=== PATIENT | male | born 1950 | race American Indian/Alaskan Native ===

== ENCOUNTER 2017-07-26 12:17 | Emergency (ER) | payer MEDICARE ==
--- NOTE | 2017-07-26 13:17 | Cat Scan Report ---
FINAL REPORT EXAM: CT HEAD/BRAIN WO CON HISTORY: dizziness,confusion/S/P fall and LOC TECHNIQUE: CT examination of the head without IV contrast PRIORS: None. FINDINGS: Nonspecific smoothly marginated large hyperdense right skullbase mass with scattered punctate calcifications is centered in the right CP angle region. Maximum AP dimension is 5 cm and transverse dimension is 3 cm. There is mass effect on the adjacent posterior fossa structures with slight leftward shift of the 4th ventricle. Leftward shift also noted of the mid brain and brainstem. There mass effect on the right cerebellum. Findings are highly suspicious for neoplasm. This may be an acoustic neuroma or meningioma. Differential includes epidermoid. No acute air-fluid level visualized in the included air-filled sinuses. Bone windows demonstrate no acute fracture. The brain is without evidence of hemorrhage or acute infarct. The ventricles and sulci are age-appropriate. IMPRESSION: ALERT: ABNORMAL FINDING REQUIRING FOLLOWUP. Large solid-appearing mass centered in right CP angle region highly suspicious for neoplasm with mass effect on adjacent brain. Differential includes acoustic neuroma, meningioma, or epidermoid. Follow-up brain MRI, with IV contrast if possible, may help further characterize
[2017-07-26 13:25] LABS: Basophils % (Auto) 0.2 % (0.0-1.8); Hematocrit 42.4 % (35.5-45.6); Hemoglobin 13.4 gm/dl (11.8-15.2); Lymphocytes # (Auto) 0.9 K/mm3 (1.2-5.4); Lymphocytes % (Auto) 11.9 % (13.4-35.0); Mean Corpuscular HGB Conc 32 % (32-34); Mean Corpuscular Volume 79 fl (84-94); Monocytes # (Auto) 0.5 K/mm3 (0.0-0.8); Monocytes % (Auto) 5.7 % (0.0-7.3); Platelet Count 150 K/mm3 (140-440); Red Blood Count 5.39 M/mm3 (3.65-5.03); Red Cell Distribution Width 13.8 % (13.2-15.2)
[2017-07-26 13:26] LABS: Mean Corpuscular Hemoglobin 25 pg (28-32)
[2017-07-26 13:30] LABS: Alanine Aminotransferase 26 units/L (7-56); Albumin 4.8 g/dL (3.9-5); BUN/Creatinine Ratio 20; Blood Urea Nitrogen 20 mg/dL (9-20); Calcium 9.7 mg/dL (8.4-10.2); Hemolysis Index 2
[2017-07-26 18:03] LABS: Bilirubin,Urine NEG (Negative); Blood,Urine NEG (Negative); Color,Urine Yellow (Yellow); Mucus,Urine 3+ /HPF; Protein,Urine <15 mg/dL mg/dL (Negative); Urobilinogen,Urine < 2.0 mg/dL (<2.0); WBC,Urine < 1.0 /HPF (0.0-6.0)
[2017-07-26 18:05] LABS: Amphetamine Screen,Urine PRESUMPTIVE NEGATIVE; Benzodiazepines Screen,Urine PRESUMPTIVE NEGATIVE; Cannabinoid Screen,Urine PRESUMPTIVE NEGATIVE; Cocaine Screen,Urine PRESUMPTIVE NEGATIVE; Methadone Screen,Urine PRESUMPTIVE NEGATIVE; Opiate Screen,Urine PRESUMPTIVE NEGATIVE
--- NOTE | 2017-07-26 18:28 | XRay Report ---
FINAL REPORT EXAM: XR RIBS UNI W PA CHEST 3+V LT HISTORY: pain s/p fall TECHNIQUE: Left ribs three views in PRIORS: None. FINDINGS: There acute displaced fractures of the left posterior lateral 9th through 12th ribs. No focal pulmonary infiltrate identified no evidence for pneumothorax. No pleural fluid collection identified. Cardiac and mediastinal contours are unremarkable IMPRESSION: Acute left 9th through 12th rib fractures
[2017-07-26] MEDS ORDERED: DECADRON IV ONE (18:56)
[2017-07-26] MEDS ORDERED: MORPHINE IV ONE ×2 (19:17→20:00)
--- NOTE | 2017-07-26 19:20 | Emergency Department Report ---
HPI - General Chief Complaint: Syncope Time Seen by Provider: 07/26/17 16:31 - HPI HPI: Patient brought to the ED today after having syncopal episode at home. stated patient was in the bathroom and she heard a noise. When she went to check on the patient he was laid on the ground not responding to verbal and tactile stimuli. Patient however had a pulse, without any loss of bowel or urine. After 2 or 3 minutes patient came back to it. Complaining of left flank pain mild weakness in the left side and he was transported to ED. ED Past Medical Hx - Past Medical History Hx Hypertension: Yes Additional medical history: heart murmur, sickle cell trait - Surgical History Past Surgical History?: No - Social History Smoking Status: Never Smoker Substance Use Type: Alcohol - Medications Home Medications: Home Medications Medication Instructions Recorded Confirmed Last Taken Type Indapamide [Lozol] 2.5 mg PO QDAY 07/26/17 07/26/17 Unknown History Lisinopril [Zestril] 20 mg PO QDAY 07/26/17 07/26/17 07/24/17 History Meloxicam [Mobic] 15 mg PO QDAY PRN 07/26/17 07/26/17 Unknown History Terazosin [Hytrin] 5 mg PO QHS 07/26/17 07/26/17 07/25/17 History ED Review of Systems ROS: Stated complaint: CHEST PAIN Other details as noted in HPI Physical Exam - Physical Exam Vital Signs: Vital Signs 07/26/17 12:29 Temperature 98.5 F Pulse Rate 85 Respiratory 18 Rate Blood Pressure 159/92 O2 Sat by Pulse 96 Oximetry Physical Exam: - Physical Exam Physical Exam: - General Limitations: No Limitations General appearance: alert, in no apparent distress, obese - Head Head exam: Present: atraumatic, normocephalic - Eye Eye exam: Present: normal appearance - ENT ENT exam: Present: mucous membranes moist - Neck Neck exam: Present: normal inspection - Respiratory Respiratory exam: Present: normal lung sounds bilaterally. Left rib cage lower part tenderness Absent: respiratory distress - Cardiovascular Cardiovascular Exam: Present: normal rhythm, tachycardia. Absent: systolic murmur, diastolic murmur, rubs, gallop - GI/Abdominal GI/Abdominal exam: Present: soft, normal bowel sounds - Extremities Exam Extremities exam: Present: normal inspection - Back Exam Back exam: Present: normal inspection - Neurological Exam Neurological exam: Present: alert, oriented X3 - Psychiatric Psychiatric exam: normal affect and mood - Skin Skin exam: Present: warm, dry, intact, normal color. Absent: rash ED Course Vital Signs 07/26/17 12:29 Temperature 98.5 F Pulse Rate 85 Respiratory 18 Rate Blood Pressure 159/92 O2 Sat by Pulse 96 Oximetry ED Medical Decision Making - Lab Data Result diagrams: 07/26/17 12:44 07/26/17 12:44 Critical care attestation.: If time is entered above; I have spent that time in minutes in the direct care of this critically ill patient, excluding procedure time. ED Disposition Clinical Impression: Brain lesion Syncope Qualifiers: Syncope type: psychogenic syncope Qualified Code(s): F48.8 - Other specified nonpsychotic mental disorders Multiple rib fractures Qualifiers: Encounter type: initial encounter Fracture type: closed Laterality: left Qualified Code(s): S22.42XA - Multiple fractures of ribs, left side, initial encounter for closed fracture Disposition: DC-09 OP ADMIT IP TO THIS HOSP Is pt being admited?: No Does the pt Need Aspirin: No Condition: Stable Instructions: Syncope (ED) Referrals: PRIMARY CARE, [Primary Care Provider] - 3-5 Days
[2017-07-26] MEDS ORDERED: MORPHINE ONE (19:42)
[2017-07-27 00:07] VITALS: BP 132/84
== END 2017-07-26 23:00 | disposition admitted as inpatient to this hospital (09) ==
LOC: ED 12:17
DX: G93.9 Disorder of brain, unspecified (principal); S22.42XA Multiple fractures of ribs, left side, initial encounter for closed fracture; F48.8 Other specified nonpsychotic mental disorders; I10 Essential (primary) hypertension; D57.3 Sickle-cell trait; Z88.2 Allergy status to sulfonamides; Z79.899 Other long term (current) drug therapy; W18.30XA Fall on same level, unspecified, initial encounter; Y93.89 Activity, other specified; Y99.8 Other external cause status; Y92.89 Other specified places as the place of occurrence of the external cause
CPT/HCPCS: 36415; 70450; 71101; 80053; 80307; 81001; 82962; 84443; 85025; 93005; 93010; 96374; 96375; 99285; G0480; J1100; J2270; 80320